=== PATIENT | female | born 1950 | race Caucasian/White ===

== ENCOUNTER 2017-07-14 16:59 | Emergency (ER) | payer MEDICARE, SELFPAY ==
[2017-07-14 17:48] LABS: #Basophils 0.1 thou/uL (0.0-0.2); #Eosinphils 0.2 thou/uL (0.0-0.7); #Lymphocytes 2.4 thou/uL (1.20-3.40); #Monocytes 0.8 thou/uL (0.11-0.59); #Neutrophils 7.2 thou/uL (1.40-6.50); %Basophils 0.8 % (0.0-1.0); %Eosinophils 2.1 % (0.0-10.0); %Lymphocytes 22.3 % (21.0-51.0); %Monocytes 7.6 % (0.0-10.0); %Neutrophils 67.1 % (42.0-75.0); Hemoglobin 15.5 g/dL (12.0-16.0); Mean Corpuscular HGB CONC 35.6 g/dL (32.0-36.0); Mean Corpuscular Hemoglobin 30.7 pg (27.0-31.0); Mean Corpuscular Volume 86.3 fl (81.0-99.0); Mean Platelet Volume 6.8 fL (7.4-10.4); Platelet Count 258 thou/uL (130-400); RBC Distribution Width 12.8 % (11.5-14.5); Red Blood Cell (RBC) Count 5.05 mill/uL (4.20-5.40); White Blood Cell (WBC) Count 10.8 thou/uL (4.8-10.8)
[2017-07-14 17:50] LABS: ALT (SGPT) 14 U/L (8-55); AST (SGOT) 13 U/L (5-34); Acetaminophen Less than 6.0 mcg/mL (10.0-30.0); Albumin 3.5 g/dL (3.4-4.8); Alcohol Less than 10 mg/dL (Less than 10); Alkaline Phosphatase 124 U/L (40-150); Anion Gap 17 mmol/L (10-20); BUN (Urea Nitrogen) 9 mg/dL (9.8-20.1); Bilirubin, Total 0.3 mg/dL (0.2-1.2); Calc. Creatinine Clearance 0 mL/min (70-130); Calcium 9.5 mg/dL (7.8-10.44); Carbon Dioxide 18 mmol/L (23-31); Chloride 107 mmol/L (98-107); Estimated GFR-MDRD 62; Globulin 3.3 g/dL (2.4-3.5); Glucose 90 mg/dL (80-115); Potassium 3.9 mmol/L (3.5-5.1); Protein, Total 6.8 g/dL (6.0-8.3); Salicylate Less than 8.0 mg/dL (15.0-30.0); Sodium 138 mmol/L (136-145)
[2017-07-14 17:52] LABS: CKMB 0.8 ng/mL (0-6.6); Troponin I Less than 0.010 ng/mL (< 0.028)
[2017-07-14 18:44] LABS: Bilirubin Negative (Negative); Blood, Urine Negative (Negative); Clarity Clear (Clear); Glucose, Urine (Dipstick) Negative (Negative); Leukocyte Negative (Negative); Nitrite Negative (Negative); Protein, Urine (Dipstick) Trace mg/dL (Neg-Trace); Urobilinogen 0.2 mg/dL (0.2-1.0)
[2017-07-14 18:53] LABS: Amphetamine Not Detected (NotDetected); Barbiturates Screen Not Detected (NotDetected); Benzodiazepine Screen Detected (NotDetected); Cocaine Metabolite Screen Not Detected (NotDetected); Medtox Control Line Valid? VALID (VALID); Methadone Not Detected (NotDetected); Methamphetamine Not Detected (NotDetected); Opiate Screen Not Detected (NotDetected); Oxycodone Screen Not Detected (NotDetected); Phencyclidine (PCP) Not Detected (NotDetected); THC/Cannabinoid Screen Not Detected (NotDetected); Tricyclic Screen Detected (NotDetected)
== END 2017-07-15 00:40 | disposition home or self-care (01) ==
LOC: BURERS 16:59
DX: F20.0 Paranoid schizophrenia (principal); M32.9 Systemic lupus erythematosus, unspecified; F17.210 Nicotine dependence, cigarettes, uncomplicated; Z79.899 Other long term (current) drug therapy
CPT/HCPCS: 36415; 51701; 80053; 80306; 80307; 81003; 82553; 84443; 84484; 85025; 93005; 94760; A4353

== ENCOUNTER 2018-05-03 23:07 | Emergency (ER) | payer SELFPAY | END 2018-05-03 23:39 | disposition home or self-care (01) | LOC: BURERS 23:07 | DX: L30.9 Dermatitis, unspecified (principal); F20.9 Schizophrenia, unspecified; F17.210 Nicotine dependence, cigarettes, uncomplicated | CPT/HCPCS: 99283 ==

== ENCOUNTER → 2018-06-12 | Emergency (ER) | payer MEDICARE, SELFPAY | LOC: BURERS 01:23 | DX: T60.8X1A Toxic effect of other pesticides, accidental (unintentional), initial encounter (principal); F20.9 Schizophrenia, unspecified; F17.210 Nicotine dependence, cigarettes, uncomplicated | CPT/HCPCS: 99283 ==

== ENCOUNTER 2019-01-17 10:32 | Emergency (ER) | payer MEDICARE ==
--- NOTE | 2019-01-17 16:53 | RAD ---
LEFT ELBOW TWO VIEWS: 01/17/19 No fracture, dislocation, or joint effusion was seen. IMPRESSION: No acute findings. POS: HOME
--- NOTE | 2019-01-17 16:55 | RAD ---
LEFT SHOULDER THREE VIEWS: 01/17/19 No fracture, dislocation, or AC joint widening was seen. The visible bony structures appear intact. IMPRESSION: No acute finding. POS: HOME
--- NOTE | 2019-01-17 16:56 | RAD ---
PELVIS: 01/17/19 A single view of the pelvis is slightly light, but no gross fractures were indicated. The hip joints are symmetrical and appear normal. The symphysis shows no widening or off-set. The pubic rings appear intact. The SI joints are symmetrical. IMPRESSION: Slightly lowered sensitivity study showing no acute finding. POS: HOME
--- NOTE | 2019-01-17 17:11 | RAD ---
PORTABLE CHEST: 01/17/19 An AP portable film at 1131 is presented with no prior films available for comparison. The heart is mildly enlarged. There is diffuse prominent of the vasculature suggesting some congestiv e change. There are no large pleural effusions but small ones might be present. There are no lobar co nsolidations. The mediastinum shows no widening or shift. The bony structures showed no gross fractur e. IMPRESSION: Mild cardiomegaly and vascular prominence. Some degree of congestive failure may be present. Dependin g upon the presentation and history, she should probably at least have a follow-up chest x-ray to bet ter exam the chest, and possibly a CT if other exam findings warrant. POS: HOME
== END 2019-01-17 12:19 | disposition home or self-care (01) ==
LOC: BURERS 10:32
DX: S40.022A Contusion of left upper arm, initial encounter (principal); J44.9 Chronic obstructive pulmonary disease, unspecified; F20.9 Schizophrenia, unspecified; F17.210 Nicotine dependence, cigarettes, uncomplicated; W01.0XXA Fall on same level from slipping, tripping and stumbling without subsequent striking against object, initial encounter
CPT/HCPCS: 71045; 72170

== ENCOUNTER 2019-11-02 18:03 | Emergency (ER) | payer MEDICARE ==
[2019-11-02] MEDS ORDERED: Mag-Al Plus 1200 MG/1200 MG/120 MG/30 ML UDCUP ONE (18:24)
[2019-11-02] MEDS ORDERED: Lidocaine Viscous Sol 2% 15 ml UD Cup ONE (18:25)
[2019-11-02 18:53] LABS: #Basophils 0.1 thou/uL (0.0-0.2); #Lymphocytes 1.2 thou/uL (1.20-3.40); #Monocytes 0.8 thou/uL (0.11-0.59); #Neutrophils 17.1 thou/uL (1.40-6.50); %Basophils 0.6 % (0.0-1.0); %Eosinophils 0.1 % (0.0-10.0); %Lymphocytes 6.4 % (21.0-51.0); %Monocytes 4.1 % (0.0-10.0); %Neutrophils 88.7 % (42.0-75.0); Hemoglobin 10.9 g/dL (12.0-16.0); Mean Corpuscular Hemoglobin 22.1 pg (27.0-31.0); Mean Corpuscular Volume 73.6 fL (78.0-98.0); Mean Platelet Volume 4.9 fL (7.4-10.4); Platelet Count 456 thou/uL (130-400); Red Blood Cell (RBC) Count 4.91 mill/uL (4.20-5.40); White Blood Cell (WBC) Count 19.3 thou/uL (4.8-10.8)
[2019-11-02 19:06] LABS: Anisocytosis MODERATE=16-30 cells (100X) (0-5/hpf); MDiff Complete? YES; Microcytosis SLIGHT = 6-15 cells (100X) (0-5/hpf); Platelet Morphology Comment Appears Increased
[2019-11-02] MEDS ORDERED: Ondansetron PF 4 MG/2 ML Vial ONE (19:09)
[2019-11-02 19:15] LABS: ALT (SGPT) 8 U/L (8-55); AST (SGOT) 12 U/L (5-34); Albumin 3.6 g/dL (3.4-4.8); Alkaline Phosphatase 143 U/L (40-110); Anion Gap 13 mmol/L (10-20); BUN (Urea Nitrogen) 9 mg/dL (9.8-20.1); Bilirubin, Total Less than 0.2 mg/dL (0.2-1.2); Calc. Creatinine Clearance 0 mL/min (70-130); Calcium 9.3 mg/dL (7.8-10.44); Carbon Dioxide 18 mmol/L (23-31); Chloride 110 mmol/L (98-107); Estimated GFR-MDRD 84; Globulin 2.8 g/dL (2.4-3.5); Glucose 119 mg/dL (80-115); Lipase 2800 U/L (8-78); Potassium 3.3 mmol/L (3.5-5.1); Protein, Total 6.4 g/dL (6.0-8.3); Sodium 138 mmol/L (136-145)
[2019-11-02] MEDS ORDERED: Morphine 4 MG/ML VIAL ONE (19:33)
[2019-11-02] MEDS ORDERED: Morphine 2 MG/ML SYRINGE ONE (20:22)
--- NOTE | 2019-11-02 20:50 | RAD ---
ABDOMEN ONE VIEW: Date: 11-02-2019 FINDINGS: An upright view of the abdomen shows no free air beneath the diaphragm. Fibrotic changes are seen in the lung bases. There is an air-fluid level present in the left flank that may be in small bowel. See CT report to follow. IMPRESSION: Air-fluid level in small bowel is noted. See CT report to follow. POS: HOME
--- NOTE | 2019-11-02 21:00 | CT ---
CT ABDOMEN AND PELVIS WITHOUT CONTRAST: Date: 11-02-[address] of the abdomen and pelvis was done without oral or IV contrast. The patient has an ostomy in place on the left side. Comparison: None FINDINGS: The lung bases show extensive fibrotic change throughout that seems chronic in nature. There are no e ffusions. The liver, spleen, and pancreas are unremarkable in appearance. It is difficult to sort out structure s around the liver hilum due to lack of contrast. The kidneys show no mass or hydronephrosis, but the re is a nonobstructing calculus in the left kidney. The aorta is densely calcified, but there is no a neurysm. No free air or free fluid was seen in the abdomen. The stomach is minimally distended and has fluid i n it. Some of the loops of proximal small bowel are fluid filled and one or two are reaching 3 cm in size, but most of the small bowel does not seem dilated and the colon is definitely not dilated. The bowel going into the patient's ostomy herniates through the abdominal wall defect and quite a bit of it is actually in the superficial soft tissues around the colostomy site. CT of the pelvis shows a 9.4 cm rounded mass sitting just above the urinary bladder. This appears to have various septations within it. I do not know if the patient has had a prior hysterectomy and this could be a large fibroid, but I would be worried about the possibility of an ovarian origin to this. This requires further follow up and an elective ultrasound is recommended. There is no fluid in the pelvis. No inflammatory changes were seen in the pelvis. IMPRESSION: 1. Chronic fibrotic changes in the lungs. 2. A moderate amount of fluid in the stomach with a few loops of proximal small bowel that are slight ly dilated and fluid filled, though not tremendously dilated. A partial obstruction could be present at worst, or this could just be an ileus. This probably bears watching. There is certainly no colonic obstruction and no obstruction of the bowel leading into or out of the ostomy. 3. 9.4 cm rounded mass in the pelvis that appears to have various septations in it. This could be of ovarian origin or uterine if there was not a prior hysterectomy. Correlate with clinical history and get an elective ultrasound to better characterize this. 4. Nonobstructing left renal calculus. Findings initially discussed with Dr. Lieberman at 1943 on 11-02-2019. POS: HOME
--- NOTE | 2019-11-02 21:05 | RAD ---
PORTABLE CHEST: Date: 11-02-2019 An AP portable film at 1824 is compared with the prior exam dated 01-17-19. FINDINGS: As before, there is diffuse interstitial prominence. Previously this was thought to be due at least i n part to pulmonary edema. Today's exam is so similar to it, that it suggests that much of this is li timmy pulmonary fibrosis. Looking at a CT that was done today, the latter confirms that suspicion. The re are no focal infiltrates or effusions. The heart size is stable. The upper lobe vessels are not cu rrently congested. IMPRESSION: Diffuse pulmonary fibrotic change. The appearance of the chest is not substantially different than 2018 study. POS: HOME
== END 2019-11-02 20:28 | disposition left against medical advice (07) ==
LOC: BURERS 18:03
DX: K85.90 Acute pancreatitis without necrosis or infection, unspecified (principal); R19.00 Intra-abdominal and pelvic swelling, mass and lump, unspecified site; J44.9 Chronic obstructive pulmonary disease, unspecified; F20.9 Schizophrenia, unspecified; F17.210 Nicotine dependence, cigarettes, uncomplicated; Z79.899 Other long term (current) drug therapy
CPT/HCPCS: 36415; 71045; 74018; 74176; 80053; 83605; 83690; 84484; 85025; 93005; 96361; 96372; 96374; 96375; J2270; J2405

== ENCOUNTER → 2019-11-03 | Emergency (ER) | payer MEDICARE ==
[~2019-11-03] MED LIST: Cefepime 2 GM VIAL ONE; Fentanyl 100 MCG/2 ML VIAL ONE; Ondansetron PF 4 MG/2 ML Vial ONE
[2019-11-03 19:55] LABS: Hemoglobin 11.7 g/dL (12.0-16.0); Mean Corpuscular Hemoglobin 20.9 pg (27.0-31.0); Mean Corpuscular Volume 72.1 fL (78.0-98.0); Mean Platelet Volume 5.2 fL (7.4-10.4); Platelet Count 552 thou/uL (130-400); RBC Distribution Width 17.5 % (11.5-14.5); Red Blood Cell (RBC) Count 5.61 mill/uL (4.20-5.40); White Blood Cell (WBC) Count 29.2 thou/uL (4.8-10.8)
[2019-11-03 20:08] LABS: ALT (SGPT) 32 U/L (8-55); AST (SGOT) 33 U/L (5-34); Albumin 3.8 g/dL (3.4-4.8); Alkaline Phosphatase 290 U/L (40-110); Anion Gap 14 mmol/L (10-20); BUN (Urea Nitrogen) 7 mg/dL (9.8-20.1); Bilirubin, Total 0.2 mg/dL (0.2-1.2); Calc. Creatinine Clearance 0 mL/min (70-130); Calcium 9.4 mg/dL (7.8-10.44); Carbon Dioxide 19 mmol/L (23-31); Chloride 108 mmol/L (98-107); Estimated GFR-MDRD 83; Globulin 3.5 g/dL (2.4-3.5); Glucose 114 mg/dL (80-115); Lipase 794 U/L (8-78); Potassium 3.4 mmol/L (3.5-5.1); Protein, Total 7.3 g/dL (6.0-8.3); Sodium 138 mmol/L (136-145)
[2019-11-03 20:16] LABS: Band 14 % (5-11); Hypochromia MODERATE=16-30 cells (100X) (0-5/hpf); Lymphocytes 1 % (21-51); MDiff Complete? YES; Microcytosis MODERATE=15-30 cells (100X) (0-5/hpf); Monocytes 6 % (0-10); Neutrophil 79 % (42-75)
[2019-11-03 20:25] LABS: CKMB 2.3 ng/mL (0-6.6)
--- NOTE | 2019-11-04 07:14 | RAD ---
PORTABLE CHEST: Date: 11/03/2019 Comparison made with the 11/02/2019 study. This portable film at 1956 hours shows fibrotic changes th roughout the lungs as before. No focal pulmonary infiltrate was seen. No effusion or new finding was encountered. The heart size remains normal. IMPRESSION: Chronic fibrotic changes, but no change since yesterday. POS: HOME
== END ==
LOC: BURERS 19:21
DX: A41.9 Sepsis, unspecified organism (principal); K85.90 Acute pancreatitis without necrosis or infection, unspecified; R79.89 Other specified abnormal findings of blood chemistry; R19.09 Other intra-abdominal and pelvic swelling, mass and lump; J44.9 Chronic obstructive pulmonary disease, unspecified; F20.9 Schizophrenia, unspecified; F17.210 Nicotine dependence, cigarettes, uncomplicated
CPT/HCPCS: 36415; 71045; 80053; 82553; 83605; 83690; 83880; 84484; 85025; 87040; 96361; 96365; 96368; 96375; J0692; J2405; J3010; J3370

== ENCOUNTER 2020-10-05 10:08 | Emergency (ER) | payer MEDICARE ==
[2020-10-05 11:06] LABS: ALT (SGPT) 31 U/L (8-55); AST (SGOT) 41 U/L (5-34); Albumin 3.5 g/dL (3.4-4.8); Alkaline Phosphatase 352 U/L (40-110); Anion Gap 16 mmol/L (10-20); BUN (Urea Nitrogen) 14 mg/dL (9.8-20.1); Bilirubin, Total 0.4 mg/dL (0.2-1.2); Calc. Creatinine Clearance 0 mL/min (70-130); Calcium 8.7 mg/dL (7.8-10.44); Carbon Dioxide 19 mmol/L (23-31); Chloride 107 mmol/L (98-107); Globulin 3.2 g/dL (2.4-3.5); Glucose 105 mg/dL (80-115); Lipase 84 U/L (8-78); Potassium 4.2 mmol/L (3.5-5.1); Protein, Total 6.7 g/dL (5.8-8.1); Sodium 138 mmol/L (136-145)
[2020-10-05 11:14] LABS: Hemoglobin 13.1 g/dL (12.0-16.0); Mean Corpuscular Volume 71.9 fL (78.0-98.0); Mean Platelet Volume 5.5 fL (7.4-10.4); Platelet Count 301 thou/uL (130-400); RBC Distribution Width 19.7 % (11.5-14.5); Red Blood Cell (RBC) Count 5.68 mill/uL (4.20-5.40); White Blood Cell (WBC) Count 20.2 thou/uL (4.8-10.8)
[2020-10-05 11:21] LABS: Bilirubin Negative (Negative); Blood, Urine Negative (Negative); Clarity Cloudy (Clear); Glucose, Urine (Dipstick) Negative (Negative); Ketone, Urine Negative (Negative); Leukocyte Small (Negative); Nitrite Positive (Negative); Protein, Urine (Dipstick) 100 mg/dL (Neg-Trace); Specific Gravity, Urine 1.015 (1.005-1.030); Urobilinogen 0.2 mg/dL (Less than 2); pH, Urine 8.5 (5.0-9.0)
[2020-10-05 11:36] LABS: Bacteria/HPF 1+ HPF (None Seen); RBC/HPF 0-3 HPF (0-3); Squamous Epithelial 0-3 HPF (0-3)
[2020-10-05 11:49] LABS: Band 1 % (5-11); Lymphocytes 8 % (21-51); MDiff Complete? YES; Monocytes 4 % (0-10); Neutrophil 86 % (42-75); RBC Morphology Normal
== END 2020-10-05 16:48 | disposition short-term general hospital (02) ==
LOC: BURERS 10:08
DX: N94.89 Other specified conditions associated with female genital organs and menstrual cycle (principal); C22.8 Malignant neoplasm of liver, primary, unspecified as to type; J44.9 Chronic obstructive pulmonary disease, unspecified; F17.210 Nicotine dependence, cigarettes, uncomplicated
CPT/HCPCS: 51701; 74176; 80053; 81003; 81015; 83690; 85025; 87077; 87086; 87186